=== PATIENT | male | born 1975 | race Caucasian/White ===

== ENCOUNTER 2023-06-05 10:18 | Emergency (ER) | payer OTHER ==
[2023-06-05 10:23] VITALS: BP 159/106; PULSE 90; RESP 18; TEMP 97.9; BMI 35.7
[2023-06-05] MEDS ORDERED: ACETAMINOPHEN 1000 MG/100 ML BAG IVPB ONE (11:07)
[2023-06-05] MEDS ORDERED: ACETAMINOPHEN INJECTION 100 ML IVPB ONE (11:32)
[2023-06-05 11:39] LABS: BASO % 0.5 % (0-2.0); EOS % 1.9 % (0-4.5); HEMATOCRIT 47.1 % (35.4-49); HEMOGLOBIN 15.4 GM/dL (11.7-16.9); LYMPH % 31.1 % (8-40); MCH 29.3 pg (25.7-33.7); MCHC 32.8 g/dl (32.0-35.9); MEAN CELL VOLUME 89.3 fl (80-96); MEAN PLT VOLUME 8.3 fl (7.5-11.1); MONO % 10.3 % (3.8-10.2); NEUT % 56.2 % (42.8-82.8); PLATELET COUNT 302 10^3/uL (134-434); RBC 5.27 M/mm3 (4.00-5.60); RDW 14.1 % (11.9-15.9); WHITE BLOOD COUNT 7.4 K/mm3 (4.0-10.0)
[2023-06-05 11:47] LABS: INR 1.1 (0.83-1.09); PROTHROMBIN TIME (PATIENT) 12.7 SEC (9.7-13.0)
[2023-06-05 11:50] LABS: ACTIVATED PTT 35.4 SECONDS (25.2-36.5)
[2023-06-05 12:04] LABS: POTASSIUM 4.5 mmol/L (3.5-5.1)
[2023-06-05 12:06] LABS: ALBUMIN 3.9 g/dl (3.4-5.0); BLOOD UREA NITROGEN 10.2 mg/dL (7-18)
[2023-06-05 12:09] LABS: CREATININE 0.9 mg/dL (0.55-1.3)
[2023-06-05 12:11] LABS: BILIRUBIN,TOTAL 0.2 mg/dL (0.2-1); TOT PROT 7.7 g/dl (6.4-8.2)
[2023-06-05] MEDS ORDERED: predniSONE 20 MG TABLET (UD) PO ONE (12:24)
[2023-06-05] MEDS ORDERED: valACYclovir HCL 500 MG TABLET (FP) PO ONE (12:27)
[2023-06-05] MEDS ORDERED: valACYclovir HCL 500 MG TABLET (FP) ONE (12:41)
[2023-06-05] MEDS ORDERED: predniSONE 20 MG TABLET (UD) ONE (12:41)
== END 2023-06-05 14:10 | disposition home or self-care (01) ==
LOC: JER 10:18
PROC: 3E033NZ Introduction of Analgesics, Hypnotics, Sedatives into Peripheral Vein, Percutaneous Approach (ICD-10-PCS; principal; 2023-06-05)
DX: G51.0 Bell's palsy (principal)
CPT/HCPCS: 36415; 70450-TC; 80053; 85025; 85610; 85730; 93005; 93010; 99284-25